=== PATIENT | female | born 1995 | race Hispanic/Latino ===

== ENCOUNTER 2020-07-28 19:41 | Emergency (ER) | payer SELFPAY ==
[2020-07-28 21:21] LABS: Absolute Lymphocytes (CBC) 1.5 K/uL (0.7-4.9); Basophils % 0.4 % (0-1.3); Hematocrit 38.9 % (36.0-45.0); Lymphocytes % 12.9 % (15.3-44.8); RBC Red Blood Cell Count 4.46 M/uL (3.86-4.86)
[2020-07-28] MEDS ORDERED: NA CHLORIDE 0.9% 1,000 ML ONE (21:42)
[2020-07-28] MEDS ORDERED: PANTOPRAZOLE 40 MG INJ ONE (21:42)
[2020-07-28] MEDS ORDERED: PROMETHAZINE INJ 25 MG/ML AMP ONE (21:42)
[2020-07-28] MEDS ORDERED: LORazepam 2 MG/ML VIAL ONE (21:44)
[2020-07-28 21:54] LABS: ALT/SGPT 20 U/L (12-78); AST/SGOT 22 U/L (15-37); Albumin 4.5 g/dL (3.4-5.0); Alkaline Phosphatase 82 U/L (45-117); BUN Blood Urea Nitrogen 14 mg/dL (7-18); Bicarbonate 25 mmol/L (21-32); Bilirubin Direct 0.3 mg/dL (0-0.2); Bilirubin Total 0.9 mg/dL (0.2-1.0); Glucose Level 76 mg/dL (74-106); Lipase 57 U/L (73-393); Potassium 3.8 mmol/L (3.5-5.1); Protein, Total 8.4 g/dL (6.4-8.2); Sodium Level 137 mmol/L (136-145)
--- NOTE | 2020-07-28 22:20 | ER ---
Nurse's Notes [facility] Name: Janiya Guthrie Age: 24 yrs Sex: Female : 1995 Arrival Date: 07/28/2020 Time: 19:45 Bed 16 Private MD: Diagnosis: Nausea and vomiting;Anxiety disorder, unspecified;Gastritis Presentation: 07/28 19:48 Coronavirus screen: Client denies travel out of the [place] in the last 14 days. At this ll1 time, the client does not indicate any symptoms associated with coronavirus-19. Ebola Screen: Patient denies travel to an Ebola-affected area in the 21 days before illness onset. Initial Sepsis Screen: Does the patient meet any 2 criteria? No. Patient's initial sepsis screen is negative. Does the patient have a suspected source of infection? Yes: Acute abdominal pain. Risk Assessment: Do you want to hurt yourself or someone else? Patient reports no desire to harm self or others. Onset of symptoms was July 28, 2020. 19:48 Method Of Arrival: Ambulatory ll1 19:48 Acuity: ANTON 2 ll1 19:51 Chief complaint: Patient states: Sever abd pain with N/V for 1 day. Vomiting bright and ll1 dark red blood today. Historical: - Allergies: 19:51 PENICILLINS; ll1 - PMHx: 19:51 chronic gastroenteritis; Seizures; ll1 - Immunization history:: Flu vaccine is not up to date. - Social history:: Smoking status: Patient reports the use of cigarette tobacco products, smokes one pack cigarettes per day. Screenin:00 Abuse screen: Denies threats or abuse. Nutritional screening: No deficits noted. jb4 Tuberculosis screening: No symptoms or risk factors identified. Fall Risk None identified. Assessment: 20:00 General: Appears in no apparent distress. uncomfortable, Behavior is calm, cooperative, jb4 appropriate for age. Pain: Complains of pain in abdomen Pain does not radiate. Pain currently is 8 out of 10 on a pain scale. Neuro: Level of Consciousness is awake, alert, obeys commands, Oriented to person, place, time, situation. Cardiovascular: Patient's skin is warm and dry. Respiratory: Airway is patent Respiratory effort is even, unlabored, Respiratory pattern is regular, symmetrical. GI: Abdomen is flat, non-distended. : No signs and/or symptoms were reported regarding the genitourinary system. EENT: No signs and/or symptoms were reported regarding the EENT system. Derm: Skin is intact, Skin is pink, warm \T\ dry. Musculoskeletal: Circulation, motion, and sensation intact. Range of motion: intact in all extremities. 21:00 Reassessment: Patient appears in no apparent distress at this time. Patient and/or jb4 family updated on plan of care and expected duration. Pain level reassessed. Patient is alert, oriented x 3, equal unlabored respirations, skin warm/dry/pink. 22:00 Reassessment: Patient appears in no apparent distress at this time. Patient and/or jb4 family updated on plan of care and expected duration. Pain level reassessed. Patient is alert, oriented x 3, equal unlabored respirations, skin warm/dry/pink. Vital Signs: 19:48 Pulse 105; Resp 17; Temp 98.5; Pulse Ox 98% ; Weight 65.77 kg; Height 5 ft. 8 in. ll1 (172.72 cm); Pain 8/10; 19:51 BP 185 / 112; ll1 22:00 BP 120 / 78; Pulse 95; Resp 18; Pulse Ox 98% on R/A; Pain 2/10; jb4 19:48 Body Mass Index 22.05 (65.77 kg, 172.72 cm) ll1 ED Course: 19:45 Patient arrived in ED. mr 19:50 Triage completed. ll1 19:51 Arm band placed on. ll1 19:54 Hung Grande [facility]. jr8 19:54 Cam Neff MD is Attending Physician. jr8 20:00 Patient has correct armband on for positive identification. Bed in low position. Call jb4 light in reach. Side rails up X 1. Pulse ox on. NIBP on. 20:37 Kenton Schaefer RN is Primary Nurse. jb4 21:00 Initial lab(s) drawn, by me, sent to lab. Inserted saline lock: 18 gauge in left jb4 antecubital area, using aseptic technique. Blood collected. 22:47 No provider procedures requiring assistance completed. IV discontinued, intact, jb4 bleeding controlled, No redness/swelling at site. Administered Medications: 21:05 Drug: NS 0.9% 1000 ml Route: IV; Rate: 1000 ml; Site: left antecubital; jb4 22:00 Follow up: Response: No adverse reaction; IV Status: Completed infusion; IV Intake: jb4 1000ml 21:08 Drug: Promethazine 12.5 mg Route: IVP; Site: left antecubital; jb4 21:30 Follow up: Response: No adverse reaction; Marked relief of symptoms jb4 21:12 Drug: ProTONIX 40 mg Route: IVP; Site: left femoral; jb4 21:40 Follow up: Response: No adverse reaction jb4 21:13 Drug: Ativan 0.5 mg Route: IVP; Site: left antecubital; jb4 21:45 Follow up: Response: No adverse reaction; Marked relief of symptoms jb4 Intake: 22:00 IV: 1000ml; Total: 1000ml. jb4 Outcome: 22:20 Discharge ordered by . elizabeth 22:47 Discharged to home ambulatory. jb4 22:47 Condition: stable 22:47 Discharge instructions given to patient, Instructed on discharge instructions, follow up and referral plans. medication usage, Demonstrated understanding of instructions, follow-up care, medications, Prescriptions given X 1. 22:49 Patient left the ED. jb4 Signatures: Leal, Sarina mr Hung Grande PA PA jr8 Kenton Schaefer RN RN jb4 Yessica Morin RN RN ll1 Corrections: (The following items were deleted from the chart) 19:52 19:48 Acuity: ANTON 3 ll1 ll1
--- NOTE | 2020-07-28 22:20 | EDPHYS ---
Physician Documentation [facility] Name: Janiya Guthrie Age: 24 yrs Sex: Female : 1995 Arrival Date: 07/28/2020 Time: 19:45 Bed 16 Private MD: ED Physician Cam Neff HPI: 07/28 20:07 This 24 yrs old Female presents to ER via Ambulatory with complaints of jr8 Abdominal Pain, Vomiting. 20:07 The patient presents with abdominal pain in the epigastric area. Onset: The jr8 symptoms/episode began/occurred today. Associated signs and symptoms: Pertinent positives: vomiting. Patient reports epigastric pain and vomiting that started today at 5pm. PMHx: chronic gastroenteritis and anxiety. She reports having had similar episodes before that were treated with Phenergan. She denies diarrhea and reports constipation. . Historical: - Allergies: 19:51 PENICILLINS; ll1 - PMHx: 19:51 chronic gastroenteritis; Seizures; ll1 - Immunization history:: Flu vaccine is not up to date. - Social history:: Smoking status: Patient reports the use of cigarette tobacco products, smokes one pack cigarettes per day. ROS: 20:10 Cardiovascular: Negative for chest pain, palpitations, and edema, Respiratory: Negative jr8 for shortness of breath, cough, wheezing, and pleuritic chest pain, MS/Extremity: Negative for injury and deformity, Skin: Negative for injury, rash, and discoloration, Neuro: Negative for headache, weakness, numbness, tingling, and seizure. 20:10 Abdomen/GI: Positive for abdominal pain, vomiting. Exam: 20:11 Head/Face: Normocephalic, atraumatic. Chest/axilla: Normal chest wall appearance and jr8 motion. Nontender with no deformity. No lesions are appreciated. Cardiovascular: Regular rate and rhythm with a normal S1 and S2. No gallops, murmurs, or rubs. Normal PMI, no JVD. No pulse deficits. Respiratory: Lungs have equal breath sounds bilaterally, clear to auscultation and percussion. No rales, rhonchi or wheezes noted. No increased work of breathing, no retractions or nasal flaring. MS/ Extremity: Pulses equal, no cyanosis. Neurovascular intact. Full, normal range of motion. Neuro: Awake and alert, GCS 15, oriented to person, place, time, and situation. Cranial nerves II-XII grossly intact. Motor strength 5/5 in all extremities. Sensory grossly intact. Cerebellar exam normal. Normal gait. 20:11 Abdomen/GI: Inspection: abdomen appears normal, Bowel sounds: normal, in all quadrants, Palpation: mild abdominal tenderness, in the suprapubic area, Indicators: McBurney's point is not tender, Bernstein's sign is negative, Rovsing's sign is negative, Psoas sign is negative. Vital Signs: 19:48 Pulse 105; Resp 17; Temp 98.5; Pulse Ox 98% ; Weight 65.77 kg; Height 5 ft. 8 in. ll1 (172.72 cm); Pain 8/10; 19:51 BP 185 / 112; ll1 22:00 BP 120 / 78; Pulse 95; Resp 18; Pulse Ox 98% on R/A; Pain 2/10; jb4 19:48 Body Mass Index 22.05 (65.77 kg, 172.72 cm) ll1 MDM: 19:54 Patient medically screened. [facility] 20:13 Data reviewed: vital signs, nurses notes, lab test result(s). 8 20:13 Data interpreted: awake overnight monitor: rate is 105 beats/min, rhythm is regular, Pulse 8 oximetry: on room air is 98 %. Interpretation: normal. 22:15 Counseling: I had a detailed discussion with the patient and/or guardian regarding: jr8 Patient did not want to provide urine specimen. Educated on importance to aid in diagnosis. She still declined. Educated to return if issues worsen. . 22:16 Data reviewed:. Counseling: I had a detailed discussion with the patient and/or jr8 guardian regarding: the historical points, exam findings, and any diagnostic results supporting the discharge/admit diagnosis, lab results. 07/28 20:04 Order name: Basic Metabolic Panel; Complete Time: 22:03 [facility] 07/28 20:04 Order name: CBC with Diff; Complete Time: 22:03 [facility] 07/28 20:04 Order name: Hepatic Function; Complete Time: 22:03 [facility] 07/28 20:04 Order name: Lipase; Complete Time: 22:03 [facility] 07/28 20:04 Order name: IV Saline Lock; Complete Time: 21:31 [facility] 07/28 20:04 Order name: Labs collected and sent; Complete Time: 21:31 jr8 Administered Medications: 21:05 Drug: NS 0.9% 1000 ml Route: IV; Rate: 1000 ml; Site: left antecubital; jb4 22:00 Follow up: Response: No adverse reaction; IV Status: Completed infusion; IV Intake: jb4 1000ml 21:08 Drug: Promethazine 12.5 mg Route: IVP; Site: left antecubital; jb4 21:30 Follow up: Response: No adverse reaction; Marked relief of symptoms jb4 21:12 Drug: ProTONIX 40 mg Route: IVP; Site: left femoral; jb4 21:40 Follow up: Response: No adverse reaction jb4 21:13 Drug: Ativan 0.5 mg Route: IVP; Site: left antecubital; jb4 21:45 Follow up: Response: No adverse reaction; Marked relief of symptoms jb4 Disposition: 23:07 Co-signature as Attending Physician, Cam Neff MD. rn Disposition: 07/28/20 22:20 Discharged to Home. Impression: Nausea and vomiting, Anxiety disorder, unspecified, Gastritis. - Condition is Stable. - Discharge Instructions: Panic Attacks, Nausea and Vomiting, Adult, Generalized Anxiety Disorder. - Prescriptions for promethazine 25 mg Oral Tablet - take 1 tablet by ORAL route every 6 hours As needed; 20 tablet. - Medication Reconciliation Form, Thank You Letter, Antibiotic Education, Prescription Opioid Use form. - Follow up: Private Physician; When: 5 - 6 days; Reason: Recheck today's complaints, Continuance of care, Re-evaluation by your physician. - Problem is new. - Symptoms have improved. Signatures: Dispatcher [employer] EDMS Cam Neff MD MD rn Roszak, Josh, PA PA jr8 Kenton Schaefer RN RN jb4 Yessica Morin RN RN ll1 Corrections: (The following items were deleted from the chart) 21: 20:06 Urine Dipstick-Ancillary ordered. 8 : 20:06 Urine Test ordered. 8 [facility] 22:19 20:13 Data interpreted: awake overnight monitor: rate is 105 beats/min, rhythm is regular, jr8 Pulse oximetry: on room air is 98 %. Interpretation: normal. 8 22:49 22:20 07/28/2020 22:20 Discharged to Home. Impression: Nausea and vomiting; Anxiety jb4 disorder, unspecified; Gastritis. Condition is Stable. Forms are Medication Reconciliation Form, Thank You Letter, Antibiotic Education, Prescription Opioid Use. Follow up: Private Physician; When: 5 - 6 days; Reason: Recheck today's complaints, Continuance of care, Re-evaluation by your physician. Problem is new. Symptoms have improved. jr8
[2020-07-28 23:08] VITALS: TEMP 98.5; O2SAT 98
[2020-07-28 23:10] VITALS: BP 120/78
== END 2020-07-28 22:49 | disposition home or self-care (01) ==
LOC: ER 19:41
DX: K29.70 Gastritis, unspecified, without bleeding (principal); F41.9 Anxiety disorder, unspecified; F17.210 Nicotine dependence, cigarettes, uncomplicated
CPT/HCPCS: 36415; 80048; 80076; 83690; 85025; 99284; C9113; J2550; J7030

== ENCOUNTER 2020-08-28 04:59 | Emergency (ER) | payer SELFPAY ==
[2020-08-28 05:48] LABS: Urine Blood Negative (Negative); Urine Glucose Negative (Negative); Urine Protein 1+ (Negative); Urine Specific Gravity >=1.030 (1.005-1.030)
[2020-08-28] MEDS ORDERED: ONDANSETRON 4 MG/2 ML VIAL ONE (05:54)
[2020-08-28] MEDS ORDERED: FAMOTIDINE 20 MG/2 ML VIAL IV ONE (05:55)
[2020-08-28] MEDS ORDERED: NA CHLORIDE 0.9% 1,000 ML ONE (05:55)
[2020-08-28] MEDS ORDERED: FLEET ENEMA ADULT PR ONE (05:56)
[2020-08-28 05:59] LABS: Absolute Lymphocytes (CBC) 0.6 K/uL (0.7-4.9); Basophils % 0.2 % (0-1.3); Hematocrit 40.3 % (36.0-45.0); Lymphocytes % 4.2 % (15.3-44.8)
[2020-08-28 06:00] LABS: Urine Specific Gravity/Preg >1.030 (1.005-1.030)
[2020-08-28 06:18] LABS: ALT/SGPT 15 U/L (12-78); AST/SGOT 10 U/L (15-37); Alkaline Phosphatase 82 U/L (45-117); BUN Blood Urea Nitrogen 8 mg/dL (7-18); Bicarbonate 27 mmol/L (21-32); Bilirubin Direct 0.2 mg/dL (0-0.2); Bilirubin Total 0.8 mg/dL (0.2-1.0); Glucose Level 115 mg/dL (74-106); Lipase 65 U/L (73-393); Potassium 3.9 mmol/L (3.5-5.1); Protein, Total 8.1 g/dL (6.4-8.2); Sodium Level 135 mmol/L (136-145)
--- NOTE | 2020-08-28 07:05 | ER ---
Nurse's Notes [facility] Name: Janiya Guthrie Age: 25 yrs Sex: Female : 1995 Arrival Date: 08/28/2020 Time: 05:00 Bed 5 Private MD: Diagnosis: Constipation, unspecified Presentation: 08/28 05:11 Chief complaint: Patient states: abdominal pain and constipation for a week. Coronavirus screen: Client denies travel out of the [place] in the last 14 days. At this time, the client does not indicate any symptoms associated with coronavirus-19. Ebola Screen: Patient negative for fever greater than or equal to 101.5 degrees Fahrenheit, and additional compatible Ebola Virus Disease symptoms Patient denies exposure to infectious person. Initial Sepsis Screen: Does the patient meet any 2 criteria? HR > 90 bpm. Does the patient have a suspected source of infection? Yes: Acute abdominal pain. Risk Assessment: Do you want to hurt yourself or someone else? Patient reports no desire to harm self or others. Onset of symptoms was August 28, 2020. 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 - Social history:: Smoking status: Patient reports the use of cigarette tobacco products, smokes one-half pack cigarettes per day, Patient uses street drugs, marijuana, Patient/guardian denies using alcohol, street drugs, The patient lives with family. - Family history:: not pertinent. Screenin:13 Abuse screen: Denies threats or abuse. Denies injuries from another. Nutritional screening: No deficits noted. Tuberculosis screening: No symptoms or risk factors identified. Fall Risk None identified. Assessment: 05:14 General: Appears in no apparent distress. uncomfortable, Behavior is calm, cooperative, wh appropriate for age. Pain: Complains of pain in abdomen Pain radiates to right leg and left leg Quality of pain is described as crampy, Pain began suddenly. Neuro: Level of Consciousness is awake, alert, obeys commands, Oriented to person, place, time, situation, Appropriate for age. Cardiovascular: Heart tones S1 S2. Respiratory: Airway is patent Respiratory effort is even, unlabored, Respiratory pattern is regular, symmetrical, Breath sounds are clear bilaterally. GI: Abdomen is flat, non-distended, Bowel sounds present X 4 quads. Abd is soft and non tender X 4 quads. Reports lower abdominal pain, upper abdominal pain, constipation, cramping. : No signs and/or symptoms were reported regarding the genitourinary system. EENT: No signs and/or symptoms were reported regarding the EENT system. Derm: Skin is intact, is healthy with good turgor, Skin is pink, warm \T\ dry. normal. Musculoskeletal: Circulation, motion, and sensation intact. 07:00 Reassessment: Patient appears in no apparent distress at this time. Patient and/or jl7 family updated on plan of care and expected duration. Pain level reassessed. Patient is alert, oriented x 3, equal unlabored respirations, skin warm/dry/pink. Vital Signs: 05:11 BP 122 / 73; Pulse 99; Resp 18; Temp 98.2; Pulse Ox 99% ; Weight 65.77 kg; Height 5 ft. 8 in. (172.72 cm); Pain 7/10; 07:00 BP 119 / 75; Pulse 74; Resp 15; Pulse Ox 100% ; jl7 05:11 Body Mass Index 22.05 (65.77 kg, 172.72 cm) ED Course: 05:00 Patient arrived in ED. cl3 05:02 Dimas Roth RN is Primary Nurse. 05:13 Triage completed. 05:13 Patient has correct armband on for positive identification. Bed in low position. Call light in reach. Side rails up X 1. Pulse ox on. NIBP on. 05:15 Arm band placed on right wrist. 05:19 Daryl Meyer MD is Attending Physician. ma2 05:45 Primary Nurse role handed off by Dimas Roth RN mw2 05:45 Inserted saline lock: 20 gauge in right antecubital area, using aseptic technique. Blood collected. 05:51 Dimas Roth RN is Primary Nurse. 06:54 Abdomen 1 View XRAY In Process Unspecified. EDMS 07:05 Xiang Bateman MD is Referral Physician. ma2 07:20 No provider procedures requiring assistance completed. IV discontinued, intact, jl7 bleeding controlled, No redness/swelling at site. Pressure dressing applied. Administered Medications: 05:45 Drug: NS 0.9% 1000 ml Route: IV; Rate: 1 bolus; Site: right antecubital; 07:00 Follow up: Response: No adverse reaction; IV Status: Completed infusion; IV Intake: jl7 1000ml 05:47 Drug: Zofran (Ondansetron) 4 mg Route: IVP; Site: right antecubital; 07:19 Follow up: Response: No adverse reaction jl7 05:49 Drug: Pepcid (famotidine) 20 mg Route: IVP; Site: right antecubital; 07:19 Follow up: Response: No adverse reaction 7 05:50 Drug: Fleet Enema 133 ml {Note: Administered by Mayda MILES.} Route: DC; 07:20 Follow up: Response: No adverse reaction jl7 07:13 Drug: TORadol (ketorolac) 30 mg Route: IVP; Site: right antecubital; [facility] 07:18 Follow up: Response: No adverse reaction jl7 Intake: 07:00 IV: 1000ml; Total: 1000ml. jl7 Outcome: 07:05 Discharge ordered by . va2 07:20 Discharged to home ambulatory. 7 07:20 Condition: stable 07:20 Discharge instructions given to patient, Instructed on discharge instructions, follow up and referral plans. medication usage, Demonstrated understanding of instructions, follow-up care, medications, Prescriptions given X 2. 07:21 Patient left the ED. jl7 Signatures: Dispatcher [employer] EDMS Arely Harrington RN RN jl7 Dimas Roth RN RN Daryl Meyer MD MD ma2 [place], MyKena mw2 Lewis, Charde cl3
--- NOTE | 2020-08-28 07:06 | EDPHYS ---
Physician Documentation [facility] Name: Janiya Guthrie Age: 25 yrs Sex: Female : 1995 Arrival Date: 08/28/2020 Time: 05:00 Bed 5 Private MD: ED Physician Daryl Meyer HPI: 08/28 06:16 This 25 yrs old Female presents to ER via Ambulatory with complaints of ma2 Constipation. 06:16 Onset: The symptoms/episode began/occurred gradually, 3 year(s) ago. Associated signs ma2 and symptoms: Pertinent negatives: anorexia, chest pain, dysuria, headache. Severity of pain: At its worst the pain was moderate in the emergency department the pain is unchanged. The patient has experienced similar episodes in the past. 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 - Social history:: Smoking status: Patient reports the use of cigarette tobacco products, smokes one-half pack cigarettes per day, Patient uses street drugs, marijuana, Patient/guardian denies using alcohol, street drugs, The patient lives with family. - Family history:: not pertinent. ROS: 06:16 Constitutional: Negative for fever, chills, and weight loss. ma2 06:16 All other systems are negative. Exam: 06:16 Constitutional: This is a well developed, well nourished patient who is awake, alert, ma2 and in no acute distress. Head/Face: Normocephalic, atraumatic. Eyes: Pupils equal round and reactive to light, extra-ocular motions intact. Lids and lashes normal. Conjunctiva and sclera are non-icteric and not injected. Cornea within normal limits. Periorbital areas with no swelling, redness, or edema. ENT: Nares patent. No nasal discharge, no septal abnormalities noted. Tympanic membranes are normal and external auditory canals are clear. Oropharynx with no redness, swelling, or masses, exudates, or evidence of obstruction, uvula midline. Mucous membranes moist. Neck: Trachea midline, no thyromegaly or masses palpated, and no cervical lymphadenopathy. Supple, full range of motion without nuchal rigidity, or vertebral point tenderness. No Meningismus. Chest/axilla: Normal chest wall appearance and motion. Nontender with no deformity. No lesions are appreciated. Cardiovascular: Regular rate and rhythm with a normal S1 and S2. No gallops, murmurs, or rubs. Normal PMI, no JVD. No pulse deficits. Respiratory: Lungs have equal breath sounds bilaterally, clear to auscultation and percussion. No rales, rhonchi or wheezes noted. No increased work of breathing, no retractions or nasal flaring. Abdomen/GI: Soft, non-tender, with normal bowel sounds. No distension or tympany. No guarding or rebound. No evidence of tenderness throughout. Back: No spinal tenderness. No costovertebral tenderness. Full range of motion. Skin: Warm, dry with normal turgor. Normal color with no rashes, no lesions, and no evidence of cellulitis. MS/ Extremity: Pulses equal, no cyanosis. Neurovascular intact. Full, normal range of motion. Neuro: Awake and alert, GCS 15, oriented to person, place, time, and situation. Cranial nerves II-XII grossly intact. Motor strength 5/5 in all extremities. Sensory grossly intact. Cerebellar exam normal. Normal gait. Vital Signs: 05:11 BP 122 / 73; Pulse 99; Resp 18; Temp 98.2; Pulse Ox 99% ; Weight 65.77 kg; Height 5 ft. wh 8 in. (172.72 cm); Pain 7/10; 07:00 BP 119 / 75; Pulse 74; Resp 15; Pulse Ox 100% ; jl7 05:11 Body Mass Index 22.05 (65.77 kg, 172.72 cm) MDM: 05:19 Patient medically screened. ma2 06:16 Differential diagnosis: gastritis, gastroesophageal reflux disease, Irritable bowel ma2 syndrome, non-specific abd pain. 07:04 Data reviewed: vital signs, nurses notes. Counseling: I had a detailed discussion with ma2 the patient and/or guardian regarding: the historical points, exam findings, and any diagnostic results supporting the discharge/admit diagnosis, the presence of at least one elevated blood pressure reading (>120/80) during this emergency department visit, the need for outpatient follow up. Response to treatment: the patient's symptoms have markedly improved after treatment. 08/28 05:31 Order name: Basic Metabolic Panel; Complete Time: 06:20 ma2 08/28 05:31 Order name: CBC with Diff ma2 08/28 05:31 Order name: Hepatic Function; Complete Time: 06:20 ma2 08/28 05:31 Order name: Lipase; Complete Time: 06:20 ma2 08/28 05:48 Order name: Urine Dipstick-Ancillary; Complete Time: 06:12 EDMS 08/28 05:50 Order name: Urine --Ancillary (enter results); Complete Time: 06:12 mw2 08/28 05:31 Order name: IV Saline Lock; Complete Time: 05:50 ma2 08/28 05:33 Order name: Abdomen 1 View XRAY ma2 08/28 06:06 Order name: CBC Smear Scan EDMS 08/28 05:31 Order name: Labs collected and sent; Complete Time: 05:50 ma2 08/28 05:31 Order name: Urine Dipstick-Ancillary (obtain specimen); Complete Time: 05:50 ma2 Administered Medications: 05:45 Drug: NS 0.9% 1000 ml Route: IV; Rate: 1 bolus; Site: right antecubital; 07:00 Follow up: Response: No adverse reaction; IV Status: Completed infusion; IV Intake: jl7 1000ml 05:47 Drug: Zofran (Ondansetron) 4 mg Route: IVP; Site: right antecubital; 07:19 Follow up: Response: No adverse reaction jl7 05:49 Drug: Pepcid (famotidine) 20 mg Route: IVP; Site: right antecubital; 07:19 Follow up: Response: No adverse reaction jl7 05:50 Drug: Fleet Enema 133 ml {Note: Administered by Mayda MILES.} Route: [place]; 07:20 Follow up: Response: No adverse reaction jl7 07:13 Drug: TORadol (ketorolac) 30 mg Route: IVP; Site: right antecubital; [facility] 07:18 Follow up: Response: No adverse reaction jl7 Disposition: 08/28/20 07:05 Discharged to Home. Impression: Constipation, unspecified. - Condition is Stable. - Discharge Instructions: Constipation, Adult, High-Fiber Diet, Constipation, Adult, [id number]. - Prescriptions for Fleet Enema Extra - insert 1 Cartridge by RECTAL route 2-4 times daily for 5 days; 5 Cartridge. Colace 100 mg Oral Tablet - take 1 tablet by ORAL route every 12 hours; 14 tablet. - Medication Reconciliation Form, Thank You Letter, Antibiotic Education, Prescription Opioid Use form. - Follow up: Xiang Bateman; When: Tomorrow; Reason: If symptoms return, Continuance of care. Signatures: Dispatcher [employer] Arely Pope RN RN jl7 Dimas Roth RN RN Daryl Meyer MD MD ma2 Corrections: (The following items were deleted from the chart) 07:21 07:05 08/28/2020 07:05 Discharged to Home. Impression: Constipation, unspecified. jl7 Condition is Stable. Discharge Instructions: Constipation, Adult, High-Fiber Diet, Constipation, Adult, [id number]. Prescriptions for Fleet Enema Extra - insert 1 Cartridge by RECTAL route 2-4 times daily for 5 days; 5 Cartridge, Colace 100 mg Oral Tablet - take 1 tablet by ORAL route every 12 hours; 14 tablet. and Forms are Medication Reconciliation Form, Thank You Letter, Antibiotic Education, Prescription Opioid Use. Follow up: Xiang Bateman; When: Tomorrow; Reason: If symptoms return, Continuance of care. ma2
[2020-08-28] MEDS ORDERED: KETOROLAC 30 MG/ML INJ ONE (07:29)
[2020-08-28 07:41] VITALS: TEMP 98.2
[2020-08-28 07:50] VITALS: BP 119/75; O2SAT 100
--- NOTE | 2020-08-28 08:09 | RAD REPORT ---
EXAM DESCRIPTION: RAD - Abdomen Single View - 08/28/2020 6:54 am CLINICAL HISTORY: Abdomen pain. FINDINGS: The bowel gas pattern is unremarkable. A moderate amount of stool is present throughout colon. No abnormal calcifications displayed
[2020-08-28 08:43] LABS: Blood Morphology Comment NOT SEEN (NOT SEEN); Platelet Estimate ADEQ; White Blood Cell Scan OK (OK)
== END 2020-08-28 07:21 | disposition home or self-care (01) ==
LOC: ER 04:59
DX: K59.00 Constipation, unspecified (principal); F17.210 Nicotine dependence, cigarettes, uncomplicated; Z88.0 Allergy status to penicillin
CPT/HCPCS: 36415; 74018; 80048; 80076; 81003; 81025; 83690; 85025; 96361; 96374; 96375; 99284; J2405; J7030

== ENCOUNTER 2021-03-06 11:36 | Emergency (ER) | payer SELFPAY ==
[2021-03-06 12:25] LABS: Absolute Lymphocytes (CBC) 1.8 K/uL (0.7-4.9); Basophils % 0.4 % (0-1.3); Hematocrit 41.8 % (36.0-45.0); Lymphocytes % 20.7 % (15.3-44.8); MPV 7.4 fL (7.6-11.3); RBC Red Blood Cell Count 4.79 M/uL (3.86-4.86)
[2021-03-06] MEDS ORDERED: MAGNES/ALUMIN/SIMET 30ML UCUP ONE (12:44)
[2021-03-06] MEDS ORDERED: FAMOTIDINE 20 MG/2 ML VIAL IV ONE (12:45)
[2021-03-06] MEDS ORDERED: ONDANSETRON 4 MG/2 ML VIAL ONE (12:45)
[2021-03-06] MEDS ORDERED: NA CHLORIDE 0.9% 1,000 ML ONE (12:45)
[2021-03-06] MEDS ORDERED: LIDOCAINE VISCOUS 2% SOLN 15 ML UDC ONE (12:45)
[2021-03-06 12:48] LABS: ALT/SGPT 23 U/L (12-78); AST/SGOT 19 U/L (15-37); Albumin 4.6 g/dL (3.4-5.0); Alkaline Phosphatase 89 U/L (45-117); BUN Blood Urea Nitrogen 12 mg/dL (7-18); Bicarbonate 26 mmol/L (21-32); Bilirubin Direct 0.3 mg/dL (0-0.2); Glucose Level 91 mg/dL (74-106); Lipase 65 U/L (73-393); Potassium 4.1 mmol/L (3.5-5.1); Protein, Total 8.3 g/dL (6.4-8.2); Sodium Level 140 mmol/L (136-145)
[2021-03-06] MEDS ORDERED: KETOROLAC 30 MG/ML INJ ONE (13:27)
[2021-03-06] MEDS ORDERED: METOCLOPRAMIDE 10 MG/2mL INJ ONE (13:27)
--- NOTE | 2021-03-06 14:00 | ER ---
Nurse's Notes [facility] Name: Janiya Guthrie Age: 25 yrs Sex: Female : 1995 Arrival Date: 03/06/2021 Time: 11:39 Bed 24 Private MD: Diagnosis: Nausea Presentation: 03/06 12:01 Chief complaint: Patient states: For the past two weeks patient states has been have NV vg1 that is intermittently but states the past two days has become worse. States headache and eye pressure and is feeling dizzy. States has hx of gastroenteritis. States has lost about 20 lbs in the past two months and has not been trying to lose weight. Coronavirus screen: Vaccine status: Patient reports being unvaccinated. Client denies travel out of the [place] in the last 14 days. Client presents with at least one sign or symptom that may indicate coronavirus-19. Standard/surgical mask placed on the client. Ebola Screen: Patient negative for fever greater than or equal to 101.5 degrees Fahrenheit, and additional compatible Ebola Virus Disease symptoms. Initial Sepsis Screen: Does the patient meet any 2 criteria? No. Patient's initial sepsis screen is negative. Does the patient have a suspected source of infection? No. Patient's initial sepsis screen is negative. Risk Assessment: Do you want to hurt yourself or someone else? Patient reports no desire to harm self or others. Onset of symptoms was February 20, 2021. 12:01 Method Of Arrival: Ambulatory vg1 12:01 Acuity: ANTON 3 vg1 Triage Assessment: 12:04 General: Appears in no apparent distress. uncomfortable, Behavior is calm, cooperative. vg1 Pain: Complains of pain in epigastric area, head and MAREN eyes. GI: Reports nausea, vomiting. 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 - Social history:: Smoking status: Patient/guardian denies using tobacco, Stopped _ months ago 1. - Family history:: not pertinent. Screenin:00 Abuse screen: Denies threats or abuse. Denies injuries from another. Nutritional ld1 screening: No deficits noted. Tuberculosis screening: No symptoms or risk factors identified. Fall Risk None identified. Assessment: 13:09 General: Appears in no apparent distress. uncomfortable, Behavior is calm, cooperative, ld1 appropriate for age. Pain: Complains of pain in face Pain does not radiate. Pain currently is 9 out of 10 on a pain scale. Quality of pain is described as throbbing, Pain began 1 day ago. Is continuous. Neuro: Level of Consciousness is awake, alert, obeys commands, Oriented to person, place, time, situation. Cardiovascular: Capillary refill < 3 seconds Patient's skin is warm and dry. Rhythm is regular. Respiratory: Airway is patent Respiratory effort is even, unlabored, Respiratory pattern is regular, symmetrical. GI: Abdomen is flat, non-distended. GI: Reports nausea, vomiting. : No signs and/or symptoms were reported regarding the genitourinary system. EENT: No signs and/or symptoms were reported regarding the EENT system. Derm: No signs and/or symptoms reported regarding the dermatologic system. Musculoskeletal: No signs and/or symptoms reported regarding the musculoskeletal system. Vital Signs: 12:01 BP 133 / 88; Pulse 99; Resp 18; Temp 98.5; Pulse Ox 100% ; Weight 56.7 kg; Height 5 ft. vg1 9 in. (175.26 cm); Pain 6/10; 12:34 BP 109 / 68; Pulse 65; Resp 18; Pulse Ox 100% on R/A; ld1 13:00 BP 118 / 74; Pulse 75; Resp 18; Pulse Ox 100% on R/A; ld1 12:01 Body Mass Index 18.46 (56.70 kg, 175.26 cm) vg1 ED Course: 11:39 Patient arrived in ED. ds1 12:04 Triage completed. vg1 12:04 Arm band placed on. vg1 12:12 Daryl Meyer MD is Attending Physician. ma2 12:14 Inserted saline lock: 20 gauge in right antecubital area, using aseptic technique. vg1 ,using aseptic technique. at bedside Blood collected. 12:16 Cathi Xavier RN is Primary Nurse. ld1 13:00 Patient has correct armband on for positive identification. Placed in gown. Bed in low ld1 position. Call light in reach. Side rails up X2. cardiac monitor technician on. Pulse ox on. NIBP on. Door closed. Noise minimized. Warm blanket given. 13:00 No provider procedures requiring assistance completed. ld1 14:04 IV discontinued, intact, bleeding controlled, No redness/swelling at site. ld1 Administered Medications: 12:35 Drug: Zofran (Ondansetron) 4 mg Route: IVP; Site: right antecubital; ld1 13:11 Follow up: Response: No adverse reaction ld1 12:35 Drug: Pepcid (famotidine) 20 mg Route: IVP; Site: right antecubital; ld1 13:11 Follow up: Response: No adverse reaction ld1 12:35 Drug: GI Cocktail without - (Maalox Suspension 30 ml, Lidocaine Liquid 2 % 15 ld1 ml) Route: PO; 13:11 Follow up: Response: No adverse reaction ld1 12:36 Drug: NS 0.9% 1000 ml Route: IV; Rate: 1 bolus; Site: right antecubital; ld1 13:11 Drug: Reglan (metoCLOPramide) 10 mg Route: IVP; Site: right antecubital; ld1 13:12 Follow up: Response: No adverse reaction ld1 13:11 Drug: Ketorolac 30 mg Route: IVP; Site: right antecubital; ld1 13:12 Follow up: Response: No adverse reaction ld1 Outcome: 13:59 Discharge ordered by . katharine 14:03 Discharged to home ambulatory. ld1 14:03 Condition: stable 14:03 Discharge instructions given to patient, Instructed on discharge instructions, follow up and referral plans. medication usage, Demonstrated understanding of instructions, follow-up care, medications, Prescriptions given X 1. 14:04 Patient left the ED. ld1 Signatures: Ashlee Landry Mohammad, MD MD ma2 Debbie Spence, RN RN vg1 Cathi Xavier RN RN ld1
--- NOTE | 2021-03-06 14:00 | EDPHYS ---
Physician Documentation [facility] Name: Janiya Guthrie Age: 25 yrs Sex: Female : 1995 Arrival Date: 03/06/2021 Time: 11:39 Bed 24 Private MD: ED Physician Daryl Meyer HPI: 03/06 12:20 This 25 yrs old Female presents to ER via Ambulatory with complaints of ma2 Nausea/Vomiting. 12:20 The patient presents to the emergency department with nausea, vomiting, diarrhea. ma2 Onset: The symptoms/episode began/occurred gradually, 1 day(s) ago. Associated signs and symptoms: Pertinent negatives: constipation, dysuria, flatulence, GI bleeding, hematuria. Severity of symptoms: At their worst the symptoms were mild in the emergency department the symptoms are unchanged. The patient has experienced similar episodes in the past. 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 - Social history:: Smoking status: Patient/guardian denies using tobacco, Stopped _ months ago 1. - Family history:: not pertinent. ROS: 12:20 Constitutional: Negative for fever, chills, and weight loss. ma2 12:20 All other systems are negative. Exam: 12:20 Constitutional: This is a well developed, well nourished patient who is awake, alert, ma2 and in no acute distress. Head/Face: Normocephalic, atraumatic. Eyes: Pupils equal round and reactive to light, extra-ocular motions intact. Lids and lashes normal. Conjunctiva and sclera are non-icteric and not injected. Cornea within normal limits. Periorbital areas with no swelling, redness, or edema. ENT: Nares patent. No nasal discharge, no septal abnormalities noted. Tympanic membranes are normal and external auditory canals are clear. Oropharynx with no redness, swelling, or masses, exudates, or evidence of obstruction, uvula midline. Mucous membranes moist. Neck: Trachea midline, no thyromegaly or masses palpated, and no cervical lymphadenopathy. Supple, full range of motion without nuchal rigidity, or vertebral point tenderness. No Meningismus. Chest/axilla: Normal chest wall appearance and motion. Nontender with no deformity. No lesions are appreciated. Cardiovascular: Regular rate and rhythm with a normal S1 and S2. No gallops, murmurs, or rubs. Normal PMI, no JVD. No pulse deficits. Respiratory: Lungs have equal breath sounds bilaterally, clear to auscultation and percussion. No rales, rhonchi or wheezes noted. No increased work of breathing, no retractions or nasal flaring. Abdomen/GI: Soft, non-tender, with normal bowel sounds. No distension or tympany. No guarding or rebound. No evidence of tenderness throughout. Skin: Warm, dry with normal turgor. Normal color with no rashes, no lesions, and no evidence of cellulitis. MS/ Extremity: Pulses equal, no cyanosis. Neurovascular intact. Full, normal range of motion. Neuro: Awake and alert, GCS 15, oriented to person, place, time, and situation. Cranial nerves II-XII grossly intact. Motor strength 5/5 in all extremities. Sensory grossly intact. Cerebellar exam normal. Normal gait. Vital Signs: 12:01 BP 133 / 88; Pulse 99; Resp 18; Temp 98.5; Pulse Ox 100% ; Weight 56.7 kg; Height 5 ft. vg1 9 in. (175.26 cm); Pain 6/10; 12:34 BP 109 / 68; Pulse 65; Resp 18; Pulse Ox 100% on R/A; ld1 13:00 BP 118 / 74; Pulse 75; Resp 18; Pulse Ox 100% on R/A; ld1 12:01 Body Mass Index 18.46 (56.70 kg, 175.26 cm) vg1 MDM: 12:20 Differential diagnosis: gastritis, pancreatitis, viral gastroenteritis, gastroenteritis.ma2 13:58 Data reviewed: vital signs, nurses notes, EMS record. Counseling: I had a detailed ma2 discussion with the patient and/or guardian regarding: the historical points, exam findings, and any diagnostic results supporting the discharge/admit diagnosis, the presence of at least one elevated blood pressure reading (>120/80) during this emergency department visit, the need for outpatient follow up. Response to treatment: the patient's symptoms have markedly improved after treatment. 13:59 Patient medically screened. va2 03/06 12:12 Order name: Basic Metabolic Panel; Complete Time: 13:56 ma2 03/06 12:12 Order name: CBC with Diff; Complete Time: 13:56 va2 03/06 12:12 Order name: Hepatic Function; Complete Time: 13:56 va2 03/06 12:12 Order name: Lipase; Complete Time: 13:56 va2 03/06 12:44 Order name: Urine --Ancillary (enter results); Complete Time: 13:56 bd 03/06 12:12 Order name: IV Saline Lock; Complete Time: 12:14 ma2 03/06 12:12 Order name: Labs collected and sent; Complete Time: 12:16 va2 03/06 12:12 Order name: Urine Dipstick-Ancillary (obtain specimen); Complete Time: 12:43 ma2 Administered Medications: 12:35 Drug: Zofran (Ondansetron) 4 mg Route: IVP; Site: right antecubital; ld1 13:11 Follow up: Response: No adverse reaction ld1 12:35 Drug: Pepcid (famotidine) 20 mg Route: IVP; Site: right antecubital; ld1 13:11 Follow up: Response: No adverse reaction ld1 12:35 Drug: GI Cocktail without - (Maalox Suspension 30 ml, Lidocaine Liquid 2 % 15 ld1 ml) Route: PO; 13:11 Follow up: Response: No adverse reaction ld1 12:36 Drug: NS 0.9% 1000 ml Route: IV; Rate: 1 bolus; Site: right antecubital; ld1 13:11 Drug: Reglan (metoCLOPramide) 10 mg Route: IVP; Site: right antecubital; ld1 13:12 Follow up: Response: No adverse reaction ld1 13:11 Drug: Ketorolac 30 mg Route: IVP; Site: right antecubital; ld1 13:12 Follow up: Response: No adverse reaction ld1 Disposition Summary: 03/06/21 13:59 Discharge Ordered Location: Home ma2 Condition: Stable ma2 Diagnosis - Nausea ma2 Followup: ma2 - With: Private Physician - When: Tomorrow - Reason: If symptoms return Discharge Instructions: - Nausea, Adult ma2 - Discharge Summary Sheet ld1 Forms: - Medication Reconciliation Form ma2 - Thank You Letter ma2 - Antibiotic Education ma2 - Work release form ld1 - Prescription Opioid Use ma2 Prescriptions: - Zofran 4 mg Oral Tablet - take 1 tablet by ORAL route every 12 hours As needed; 20 tablet; Refills: 0, ma2 Product Selection Permitted Signatures: Dispatcher [employer] EDDaryl Valverde MD MD ma2 Debbie Spence RN RN vg1 Cathi Xavier RN RN ld1
[2021-03-06 14:24] VITALS: TEMP 98.5; O2SAT 100
[2021-03-06 14:25] VITALS: BP 109/68
[2021-03-09 09:48] LABS: Urine Blood Negative (Negative); Urine Glucose Negative (Negative); Urine Protein Negative (Negative); Urine pH 7.5 (5.0-7.0)
== END 2021-03-06 14:04 | disposition home or self-care (01) ==
LOC: ER 11:36
DX: R11.0 Nausea (principal); Z88.0 Allergy status to penicillin
CPT/HCPCS: 36415; 80048; 80076; 81003; 81025; 83690; 85025; 96374; 96375; 99284; J2405; J2765; J7030